=== PATIENT | male | born 1990 | race Caucasian/White ===

== ENCOUNTER 2017-09-16 12:18 | Emergency (ER) | payer OTHER ==
[~2017-09-16 12:18] MED LIST: AZIT250T3 PO; DICL75TA PO; VIST25CA PO
[2017-09-16 12:31] VITALS: BP 148/91; PULSE 106; RESP 20; TEMP 98.4; O2SAT 97
[2017-09-16] MEDS ORDERED: LIDOCAINE HCL 1% 20 ML VIAL INFIL ONE (12:45)
--- NOTE | 2017-09-16 12:49 | PD ---
HPI Chief Complaint: Skin Problem Time Seen by Provider: 12:37 Travel History International Travel<30 days: No Contact w/Intl Traveler<30days: No Traveled to known affect area: No History of Present Illness HPI 27-year-old male presents to the ED for evaluation of 2 week history of 6/10 throbbing pain of the medial right great toenail. Gradual onset. Patient states that he has a ingrown toenail in the area. Endorses similar area on the lateral aspect left great toenail. He denies numbness, tingling, weakness, limitations to range of motion. Denies fever, chills, nausea, vomiting, history of MRSA. States that he has been incarcerated for the last few months and was treated with a course of erythromycin with no improvement in symptoms. No treatment attempted at home. PFSH Past Medical History Medical History: Denies Significant Hx Influenza Vaccination: No Past Surgical History Surgical History: No Previous Surgery Social History Alcohol Use: Yes Tobacco Use: Yes Substance Use: No (DENIES) Allergies-Medications (Allergen,Severity, Reaction): Coded Allergies: No Known Allergies (Unverified Adverse Reaction, Unknown, 09/16/17) Reported Meds & Prescriptions Reported Meds & Active Scripts Active Bactrim DS (Sulfamethoxazole-Trimethoprim) 800-160 Mg Tab 1 Tab PO BID Triamcinolone Topical (Triamcinolone Acetonide) 0.025% Cream 1 Applic TOPICAL TID 14 Days Review of Systems Except as stated in HPI: all other systems reviewed are Neg Physical Exam Narrative GENERAL: Well-nourished, well-developed male in no acute distress. SKIN: Focused skin assessment warm/dry. The medial aspect of the right great toenail is ingrown with localized erythema on the medial nail fold. The lateral aspect of the left great toenail is ingrown with localized erythema of the lateral nail fold. There is a small amount of crusting bilaterally. Right nail worse than left. No cellulitic streaking. No warmth. No edema. HEAD: Normocephalic. EYES: No scleral icterus. No injection or drainage. NECK: Supple, trachea midline. No JVD or lymphadenopathy. CARDIOVASCULAR: Regular rate and rhythm without murmurs, gallops, or rubs. RESPIRATORY: Breath sounds equal bilaterally. No accessory muscle use. GASTROINTESTINAL: Abdomen soft, non-tender, nondistended. MUSCULOSKELETAL: No cyanosis, or edema. Patient retains full, active, painless R limb of the digits of bilateral feet. Neurovascularly intact bilaterally. BACK: Nontender without obvious deformity. No CVA tenderness. Data Data Last Documented VS Vital Signs Date Time Temp Pulse Resp B/P (MAP) Pulse Ox O2 Delivery O2 Flow Rate FiO2 09/16/17 12:31 98.4 106 20 148/91 (110) 97 Orders Orders Lidocaine 1% Inj (Xylocaine 1% Inj) (09/16/17 12:45) Wound Culture And Gram Stain (09/16/17 12:42) Ibuprofen (Motrin) (09/16/17 13:00) MDM Medical Decision Making Medical Screen Exam Complete: Yes Emergency Medical Condition: Yes Differential Diagnosis Ingrown toenail versus paronychia versus abscess versus other Narrative Course 27-year-old male presents to the ED for evaluation of 2 week history of 6/10 throbbing pain of the medial right great toenail. Patient states that he has a ingrown toenail in the area. Endorses similar area on the lateral aspect left great toenail. Vitals reviewed. Physical exam consistent with ingrown toenail bilaterally, paronychia of the right great toe. Wedge resection was performed bilaterally, culture was obtained of the right toe. Please see my procedure note for details. Patient is prescribed Bactrim DS twice a day for the right- sided paronychia. He is provided triamcinolone cream to use bilaterally. We discussed reasons to return to the ED. He indicated understanding of instructions and is agreeable to the care plan. He is stable and discharged home. Procedures Procedure Narrative Incision of paronychia right great toenail: The area was prepped and was sterilely draped. A digital block was performed with 1% lidocaine. Adequate anesthesia was obtained. A number 11 scalpel was used to make a 1.25-cm incision across the area of the abscess. The abscess was drained, complex loculations were broken down, and irrigated with normal saline. Wedge excision of the toenail was performed. Cultures were obtained. Dressing was applied. Wedge resection left great toenail: Digital block was performed with 1% lidocaine. Adequate anesthesia was obtained. Surgical scissors were used to separate the nail from the nailbed. The medial edge of the nail was excised. Dressing was applied. Patient tolerated the procedure well. Diagnosis Primary Impression: Ingrown left greater toenail Additional Impressions: Ingrown right greater toenail Paronychia of great toe, right Referrals: Modeling Analyst Patient Instructions: General Instructions, Paronychia (ED), Partial Nail Avulsion for Ingrown Nail (DC) Additional Instructions: Rest, hydrate. Soak your feet up to 3 times a day for 10-20 minutes in warm soapy water with 1- 2 tablespoons of Epsom salt. Do this for 1-2 weeks. After soaking assure the area is completely dry before applying a thin amount of triamcinolone cream. Take every Bactrim pill until they are all gone. Keep your feet clean and dry, change socks at least once daily. Allow your feet to be exposed to the air as much as possible. Take OTC pain medications as directed on label, as needed for pain. Follow-up with the filler in if symptoms fail to resolve. Return to the ED for any urgent or emergent medical condition. Med/Other Pt SpecificInfo: Prescription(s) given Scripts Sulfamethoxazole-Trimethoprim (Bactrim DS) 800-160 Mg Tab 1 TAB PO BID for Infection, #14 TAB 0 Refills Prov: Blair Siegel MD 09/16/17 Triamcinolone Topical (Triamcinolone Topical) 0.025% Cream 1 APPLIC TOPICAL TID for Inflammation for 14 Days, #15 GM 0 Refills Prov: Blair Siegel MD 09/16/17 Disposition: 01 DISCHARGE HOME Condition: Stable Oneida Maguire Sep 16, 2017 12:49
[2017-09-16] MEDS ORDERED: IBUPROFEN 800 MG TAB PO ONE (13:00)
[2017-09-16] MEDS ORDERED: TRIA.025%T TOPICAL (13:38)
[2017-09-16] MEDS ORDERED: BACT800T5 PO (13:38)
== END 2017-09-16 14:02 | disposition home or self-care (01) ==
LOC: PHEFT 12:18
DX: L03.031 Cellulitis of right toe (principal); A49.01 Methicillin susceptible Staphylococcus aureus infection, unspecified site
CPT/HCPCS: 10060; 11765; 86403; 87070; 87186; 87205